=== PATIENT | female | born 1995 | race Caucasian/White ===

== ENCOUNTER 2016-07-29 04:17 | Emergency (ER) | payer OTHER ==
--- NOTE | ~2016-07-29 | CR21 ---
[facility] A Service of [facility] & [facility] RADIOLOGY TEXT RESULTS PATIENT: LESLI BRASWELL LOCATION: [facility] : [birth year] UNIT #: [id number] AGE: [address]: River Sosa MD SEX: F ORDER DR: [id number] [facility] [address] [place], [place] [address] [id number] E MR#: [id number] Acc #: [id number] NAME: LESLI BRASWELL. : 1995 SEX: F STUDY DATE/TIME: 07/29/2016 05:08 UNIT: [facility] ROOM: STUDY DESCRIPTION: CR Ankle Min 3 Views Rt Attending Physician: River Sosa M.D. Ordering Physician: Jovana Schofield M.D. Primary Care Physician: Enmanuel Garrido M.D. MEDICAL IMAGING REPORT This report is preliminary unless electronic signature is present EXAM Right ankle, 07/29 at 05:08. INDICATIONS Ankle pain after a fall tonight. FINDINGS Three views of the right ankle are compared to 12/22. Soft tissue swelling is present. Alignment is normal. Well corticated bone fragments are seen adjacent to both malleoli and have the appearance of old trauma. No clearly acute fracture is seen. IMPRESSION Soft tissue swelling without acute fracture or malalignment. Small well corticated bone fragments adjacent to both malleoli suggest prior trauma. Dictated by... Michael Sahu Jr., M.D. THIS IS AN ELECTRONICALLY VERIFIED REPORT Michael Sahu Jr., M.D. at 07/29/2016 9:54 PM YAMEL/aric TD: 07/29/2016 09:19 JOB #: [id number] MEDICAL IMAGING REPORT Page 1 of 1 COPY
--- NOTE | ~2016-07-29 | US61 ---
[facility] A Service of [facility] & [facility] RADIOLOGY TEXT RESULTS PATIENT: LESLI BRASWELL LOCATION: [facility] : [birth year] UNIT #: [id number] AGE: [address]: River Sosa MD SEX: F ORDER DR: [id number] [facility] [address] [place], [place] [address] [id number] E MR#: [id number] Acc #: [id number] NAME: LESLI BRASWELL. : 1995 SEX: F STUDY DATE/TIME: 07/29/2016 6:10 UNIT: [facility] ROOM: STUDY DESCRIPTION: US /Mat <14Wk / Attending Physician: River Sosa M.D. Ordering Physician: Jovana Schofield M.D. Primary Care Physician: Enmanuel Garrido M.D. MEDICAL IMAGING REPORT This report is preliminary unless electronic signature is present EXAM ultrasound. HISTORY Pelvic pain for the past 3 hours after falling. Positive test. Right-sided abdominal and pelvic pain. TECHNIQUE Ultrasound evaluation of the pelvis was performed transvaginally with tee-scale color-flow and Doppler spectral waveform analysis. FINDINGS There is a single intrauterine . Cardiac activity is seen at a rate of 175 beats per minute. The estimated gestational age using BPD head circumference and crown-rump length is approximately 9 weeks. The adnexal regions are clear. No abnormalities are seen. IMPRESSION Viable intrauterine . heart tones noted at 175 beats per minute. No abnormalities noted. Dictated by... Michael Still M.D. THIS IS AN ELECTRONICALLY VERIFIED REPORT Michael Still M.D. at 07/30/2016 10:29 AM RLF/denise TD: 07/29/2016 09:39 JOB #: [id number] MEDICAL IMAGING REPORT Page 1 of 1 COPY
[~2016-07-29 04:17] MED LIST: NAPROXEN PO; NO MEDICATIONS; NORFLEX100 M1 PO; VISTARIL PO; VOLTAREN75 MG PO
[2016-07-29 05:42] LABS: BASOPHIL# 0.1 X10e3 (0-0.3); EOSINOPHIL# 0.1 X10e3 (0-0.7); EOSINOPHIL% 0.9 % (0.0-7.0); HEMATOCRIT 37.7 % (35.0-45.0); HEMOGLOBIN 12.7 gm/dL (12.0-16.0); LYMPHOCYTE# 2.8 X10e3 (1.0-3.5); MEAN CELL VOLUME 89.3 FL (83-96); MEAN CORPUSCULAR HGB CONC 33.6 g/dL (30-36); MEAN PLATELET VOLUME 8.4 FL (6.5-11.5); MONOCYTE# 0.7 X10e3 (0-1.0); MONOCYTE% 5.2 % (3.0-12.0); NEUTROPHIL# 9.6 X10e3 (1.5-7.1); NEUTROPHIL% 71.9 % (40-75); PLATELET COUNT 255 X10e3 (140-420); RED BLOOD COUNT 4.22 X10e (3.90-5.30); WHITE BLOOD COUNT 13.3 X10e3 (4.0-10.5)
[2016-07-29 05:45] LABS: DIFF IND NO
== END 2016-07-29 07:46 | disposition home or self-care (01) ==
LOC: CED 04:17
PROVIDERS: Emergency Medicine
DX: S93.401A Sprain of unspecified ligament of right ankle, initial encounter (principal); Z79.899 Other long term (current) drug therapy; W18.09XA Striking against other object with subsequent fall, initial encounter; Y92.69 Other specified industrial and construction area as the place of occurrence of the external cause; Y99.0 Civilian activity done for income or pay
CPT/HCPCS: 29515; 73610; 76801; 84702; 85025; 86900; 86901; 99284